=== PATIENT | female | born 1990 | race Two or more races ===

== ENCOUNTER 2019-03-01 18:56 | Emergency (ER) | payer SELFPAY ==
[~2019-03-01] VITALS: Ht 165.1 cm; Wt 68.5 kg
[2019-03-01 19:34] VITALS: BP 118/86
--- NOTE | 2019-03-01 20:16 | PHYS DOC ---
Past Medical History Past Medical History: No Pertinent History (EBLTRAN ONEAL APRN) Past Surgical History: No Surgical History (BELTRAN ONEAL APRN) Alcohol Use: Heavy Drug Use: Marijuana (BELTRAN ONEAL APRN) Attending Signature I have participated in the care of this patient and I have reviewed and agree with all pertinent clinical information above including history, exam, and recommendations. (EUGENIA GUILLERMO MD) Adult General Chief Complaint Chief Complaint: COUGH HPI HPI Patient is a 28 year old female who presents to the ED today complaining of a productive cough, sore throat, nasal congestion, fevers body aches and chills, symptoms began yesterday. (BELTRAN ONEAL APRN) Review of Systems Review of Systems Constitutional: Reports fever, body aches and chills Eyes: Denies change in visual acuity, redness, or eye pain [] HENT: Reports sore throat. Reports nasal congestion Respiratory: Reports cough, denies shortness of breath [] Cardiovascular: No additional information not addressed in HPI [] GI: Denies abdominal pain, nausea, vomiting, bloody stools or diarrhea [] : Denies dysuria or hematuria [] Musculoskeletal: Denies back pain or joint pain [] Integument: Denies rash or skin lesions [] Neurologic: Denies headache, focal weakness or sensory changes [] E All other systems were reviewed and found to be within normal limits, except as documented in this note. (BELTRAN ONEAL APRN) Allergies Allergies Allergies Coded Allergies Type Severity Reaction Last Updated Verified No Known Drug Allergies 03/01/19 No (EUGENIA GUILLERMO MD) Physical Exam Physical Exam Constitutional: Well developed, well nourished, no acute distress, non-toxic appearance. [] HENT: Normocephalic, atraumatic, bilateral external ears normal, oropharynx moist, no oral exudates, nose normal. [] Eyes: PERRLA, EOMI, conjunctiva normal, no discharge. [] Neck: Normal range of motion, no tenderness, supple, no stridor. [] Cardiovascular:Heart rate regular rhythm, no murmur [] Lungs & Thorax: Bilateral breath sounds clear to auscultation [] Abdomen: Bowel sounds normal, soft, no tenderness, no masses, no pulsatile masses. [] Skin: Warm, dry, no erythema, no rash. [] Back: No tenderness, no CVA tenderness. [] Extremities: No tenderness, no cyanosis, no clubbing, ROM intact, no edema. [] Neurologic: Alert and oriented X 3, normal motor function, normal sensory function, no focal deficits noted. [] Psychologic: Affect normal, judgement normal, mood normal. [] (BELTRAN ONEAL APRN) Current Patient Data Vital Signs Vital Signs Date Time Temp Pulse Resp B/P (MAP) Pulse Ox O2 Delivery O2 Flow Rate FiO2 03/01/19 19:34 99.6 102 14 118/86 (97) 100 Room Air 99.6 (EUGENIA GUILLERMO MD) Lab Values Laboratory Tests Test 03/01/19 19:37 Influenza Type A Antigen Positive (NEGATIVE) Influenza Type B Antigen Negative (NEGATIVE) (EUGENIA GUILLERMO MD) Lab Values Laboratory Tests Test 03/01/19 19:37 Influenza Type A Antigen Positive (NEGATIVE) Influenza Type B Antigen Negative (NEGATIVE) (BELTRAN ONEAL APRN) EKG EKG [] (BELTRAN ONEAL APRN) Radiology/Procedures Radiology/Procedures [] (BELTRAN ONEAL APRN) Course & Med Decision Making Course & Med Decision Making Pertinent Labs and Imaging studies reviewed. (See chart for details) This is a 28-year-old female patient presenting to the ED today with a fever body aches chills and a cough, symptoms began yesterday. Positive influenza A. Discharged on Tamiflu OTC remedies also recommended Tylenol and Motrin (BELTRAN ONEAL APRN) Dragon Disclaimer Dragon Disclaimer This electronic medical record was generated, in whole or in part, using a voice recognition dictation system. (BELTRAN ONEAL APRN) Departure Departure Impression: Primary Impression: Cough Additional Impressions: Influenza A Fever Disposition: 01 HOME, SELF-CARE Condition: STABLE Referrals: NICHOLAS VALVERDE MD (PCP) follow up in 1-2 weeks Patient Instructions: Influenza A (H1N1) Additional Instructions: You were evaluated in the emergency room and tested positive for influenza A. You have a prescription for Tamiflu, take this medicine as prescribed until completed. Push fluids, maintain good hand hygiene, follow-up with your doctor in 1-2 weeks Scripts Oseltamivir Phosphate (TAMIFLU) 75 Mg Capsule 1 CAP PO BID, #10 CAP Prov: MUTUNGA,BELTRAN HOUSING MANAGEMENT OFFICER 03/01/19 Problem Qualifiers Additional Impressions: Fever Fever type: unspecified Qualified Codes: R50.9 - Fever, unspecified BELTRAN ONEAL HOUSING MANAGEMENT OFFICER Mar 01, 2019 20:16 EUGENIA GUILLERMO MD Mar 02, 2019 19:21
[2019-03-01 20:17] LABS: INFLUENZA A PATIENT POSITIVE (NEGATIVE); INFLUENZA B PATIENT NEGATIVE (NEGATIVE)
[2019-03-01] MEDS ORDERED: OSEL75CA PO (20:22)
== END 2019-03-01 20:23 | disposition home or self-care (01) ==
LOC: EDSEX 18:56 → ER 18:56
DX: J10.1 Influenza due to other identified influenza virus with other respiratory manifestations (principal); R50.9 Fever, unspecified; R05 Cough; R09.81 Nasal congestion; F12.90 Cannabis use, unspecified, uncomplicated; F10.10 Alcohol abuse, uncomplicated
CPT/HCPCS: 87804; 99284

== ENCOUNTER 2019-09-29 13:37 | Emergency (ER) | payer OTHER, BC ==
[~2019-09-29] VITALS: Ht 167.6 cm; Wt 70.0 kg
[~2019-09-29 13:37] MED LIST: OSEL75CA PO
[2019-09-29] MEDS ORDERED: HYDROcodone/APAP 5/325MG 1 TAB TABLET PO ONE (14:15)
[2019-09-29] MEDS ORDERED: ORPHENADRINE CITRATE 60 MG/2 ML VIAL. IM ONE (14:15)
[2019-09-29] MEDS ORDERED: ORPH100T PO (14:24)
[2019-09-29] MEDS ORDERED: HYDR-3164 PO (14:24)
[2019-09-29] MEDS ORDERED: IBUP-1007 PO (14:24)
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
[2019-09-29 14:31] LABS: BILIRUBIN,URINE NEGATIVE (NEG); CLARITY,URINE CLEAR; COLOR,URINE YELLOW; NITRITE,URINE NEGATIVE (NEG); PROTEIN,URINE NEGATIVE (NEG-TRACE)
[2019-09-29 14:41] LABS: BACTERIA,URINE FEW /HPF (0-FEW); RBC,URINE 0 /HPF (0-2); WBC,URINE RARE /HPF (0-4)
[2019-09-29 14:42] LABS: SQUAMOUS EPITHELIAL CELL,UR OCC /LPF
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
[2019-09-29 15:20] VITALS: BP 128/61
== END 2019-09-29 15:27 | disposition home or self-care (01) ==
LOC: ER 13:37
DX: S39.012A Strain of muscle, fascia and tendon of lower back, initial encounter (principal); M54.2 Cervicalgia; R51 Headache; V49.88XA Car occupant (driver) (passenger) injured in other specified transport accidents, initial encounter; Y92.488 Other paved roadways as the place of occurrence of the external cause; Y93.89 Activity, other specified; Y99.8 Other external cause status
CPT/HCPCS: 70450; 72125; 81001; 81025; 96372; 99285; J2360

== ENCOUNTER 2019-10-02 03:48 | Emergency (ER) | payer OTHER ==
[~2019-10-02] VITALS: Ht 165.1 cm; Wt 63.6 kg
[~2019-10-02 03:48] MED LIST changes: +HYDR-3164 PO; +IBUP-1007 PO; +ORPH100T PO
[2019-10-02 04:04] VITALS: BP 127/83
[2019-10-02] MEDS ORDERED: PRED20TA PO (04:18)
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
[2019-10-02] MEDS ORDERED: KETOROLAC 30 MG/ML VIAL. IM ONE (04:30)
[2019-10-02] MEDS ORDERED: DEXAMETHASONE 4 MG TABLET PO ONE (04:30)
== END 2019-10-02 04:38 | disposition home or self-care (01) ==
LOC: ER 03:48
DX: G89.11 Acute pain due to trauma (principal); M54.2 Cervicalgia; M54.5 Low back pain; F12.90 Cannabis use, unspecified, uncomplicated; V89.2XXA Person injured in unspecified motor-vehicle accident, traffic, initial encounter; Y93.89 Activity, other specified; Y92.89 Other specified places as the place of occurrence of the external cause; Y99.8 Other external cause status
CPT/HCPCS: 96372; 99283; J1885